=== PATIENT | female | born 1965 | race Caucasian/White ===

== ENCOUNTER → 2017-09-05 | Outpatient (CLI) | payer BC ==
--- NOTE | 2017-09-05 15:38 | XR ---
EXAMINATION TYPE: XR foot complete LT DATE OF EXAM: 09/05/2017 COMPARISON: NONE HISTORY: Pain TECHNIQUE: Three views are submitted. FINDINGS: The osseous structures are intact. There is no acute fracture or dislocation. Arthropathy first MTP joint. IMPRESSION: 1. No acute fracture or dislocation. If symptoms persist, follow-up exam in 7 to 10 days could be ob tained. 2. Arthropathy of the first MTP joint with hypertrophic spur correlate for bunion. 3. Calcaneal spurs. 4. there is sclerosis at the base of the proximal phalanx of the fifth digits. Occasionally BE seen w ith a stress fracture. Correlate with tenderness. If positive for point tenderness recommend MRI or b one scan.
== END | disposition home or self-care (01) ==
LOC: RADXRYALE 15:08
PROVIDERS: ATTEND Physician Assistant Medical
DX: M77.32 Calcaneal spur, left foot (principal); M25.872 Other specified joint disorders, left ankle and foot; M12.872 Other specific arthropathies, not elsewhere classified, left ankle and foot

== ENCOUNTER → 2018-02-23 | Outpatient (CLI) | payer BC ==
--- NOTE | 2018-02-23 13:56 | EST ---
EXERCISE STRESS AGE: 52 SEX: F HT: 5'5" WT: 160 PROTOCOL: Jose Stress Test STAGE: II DURATION OF EXERCISE: 6:13 HEART RATE REST: 60 BLOOD PRESSURE REST: 176/79 MAXIMUM HEART RATE ACHIEVED: 150 MAXIMUM BLOOD PRESSURE: 205/85 85% MPHR: 142 100% MPHR: 167 METS: 7.5 INDICATIONS: Chest pain, heart murmur. CLINICAL INFORMATION: Baseline EKG revealed normal sinus rhythm without significant ST-T changes. Patient walked for 6 minutes 13 seconds, achieved a maximal heart rate of 150 beats per minute, developed fatigue and shortness of breath but did not have any angina or arrhythmia. EKG did not reveal any ST-segment changes to indicate ischemia. By EKG criteria this is a negative stress test with limited exercise capacity. SONY / KAMININ: [id number] /
== END | disposition home or self-care (01) ==
LOC: RADNMMAIN 10:53
PROVIDERS: ATTEND Family Medicine
DX: R53.83 Other fatigue (principal); R06.02 Shortness of breath; I10 Essential (primary) hypertension
CPT/HCPCS: 93017

== ENCOUNTER → 2018-03-11 | Outpatient (CLI) | payer BC ==
--- NOTE | 2018-03-11 13:06 | XR ---
Left foot HISTORY: Osteomyelitis 3 views of the left foot correlated to prior left foot 09/05/2017 There is no significant interval change. No periosteal reaction to suggest osteomyelitis isn't eviden t. Bone mineralization, joint spaces and alignment are stable. There is a plantar calcaneal spur. IMPRESSION: Stable exam.
== END | disposition home or self-care (01) ==
LOC: RADXRMAIN 12:17
PROVIDERS: ATTEND Podiatrist Foot Surgery
DX: M86.272 Subacute osteomyelitis, left ankle and foot (principal)

== ENCOUNTER → 2018-04-21 | Outpatient (CLI) | payer BC ==
--- NOTE | 2018-04-22 14:09 | MM ---
Reason for exam: screening (asymptomatic). Last mammogram was performed 1 year and 10 months ago. History: Patient had first child at age 30. Physical Findings: A clinical breast exam by your physician is recommended on an annual basis and results should be correlated with mammographic findings. MG 3D Screening Mammo W/Cad Bilateral CC and MLO view(s) were taken. Prior study comparison: June 21, 2016, bilateral MG 3d screening mammo w/cad. March 27, 2015, bilateral MG screening mammo w CAD. There are scattered fibroglandular densities. No significant changes when compared with prior studies. ASSESSMENT: Benign, BI-RAD 2 RECOMMENDATION: Routine screening mammogram of both breasts in 1 year.
== END | disposition home or self-care (01) ==
LOC: RADMAMWWP 17:15
PROVIDERS: ATTEND Family Medicine
DX: Z12.31 Encounter for screening mammogram for malignant neoplasm of breast (principal)
CPT/HCPCS: 77063; 77067

== ENCOUNTER → 2018-10-07 | Outpatient (CLI) | payer BC ==
--- NOTE | 2018-10-08 07:25 | US ---
EXAMINATION TYPE: US carotid duplex BILAT DATE OF EXAM: 10/07/2018 COMPARISON: US 2014 CLINICAL HISTORY: I10 Hypertension, hyperlipidemia E78.2. EXAM MEASUREMENTS: RIGHT: Peak Systolic Velocity (PSV) cm/sec ----- Right CCA: 82.0 ----- Right ICA: 144.7 ----- Right ECA: 133.3 ICA/CCA ratio: 1.8 RIGHT: End Diastole cm/sec ----- Right CCA: 22.6 ----- Right ICA: 51.0 ----- Right ECA: 21.7 LEFT: Peak Systolic Velocity (PSV) cm/sec ----- Left CCA: 81.0 ----- Left ICA: 120.2 ----- Left ECA: 93.2 ICA/CCA ratio: 1.5 LEFT: End Diastole cm/sec ----- Left CCA: 26.7 ----- Left ICA: 58.5 ----- Left ECA: 10.8 VERTEBRALS (direction of flow): Right Vertebral: Antegrade Left Vertebral: Antegrade Rhythm: Normal Thyroid: right: 1.8 x 1.0 x 1.1cm nodule, left: 2.0 x 1.7 x 1.6cm nodule, 1.2 x 1.0 x 1.2cm nodule. IMPRESSION: Bilateral intimal thickening, minimal plaque bilateral bulb, elevated velocities: right distal ICA and right proximal ECA, no significant stenosis. Criteria for Assigning % of Stenosis / Diameter reduction (Estimation based on the indirect measurements of the internal carotid artery velocities (ICA PSV). 1. Normal (no stenosis)=ICA PSV < 125 cm/s: ratio < 2.0: ICA EDV<40 cm/s. 2. Less than 50% stenosis=ICA PSV < 125 cm/s: ratio < 2.0: ICA EDV<40 cm/s. 3. 50 to 69% stenosis=ICA PSV of 125 to 230 cm/s: ration 2.0 ? 4.0: ICA EDV 40-100 cm/s. 4. Greater than 70% stenosis to near occlusion= ICA PSV > 230 cm/s: ratio > 4.0: ICA EDV > 100 cm/s. 5. Near occlusion= ICA PSV velocities may be low or undetectable: variable ratio and ICA EDV. 6. Total occlusion=unable to detect flow.
== END ==
LOC: RADUSWWP 15:25
PROVIDERS: ATTEND Family Medicine
DX: I70.90 Unspecified atherosclerosis (principal)
CPT/HCPCS: 93880

== ENCOUNTER → 2019-06-11 | Outpatient (CLI) | payer SELFPAY ==
--- NOTE | 2019-06-16 13:49 | P.ARTDOP ---
Arterial Doppler LOWER EXTREMITY ARTERIAL DOPPLER: DATE OF SERVICE: 06/11/2019 Reason for study: Not given. Doppler waveforms: Multiphasic bilaterally throughout. Pulse volume recording: []. Pressure gradients: None. Ankle-brachial indices: Greater than 1 bilaterally. Toe pressures: [] on the right, [] on the left Impression: Normal study.
== END | disposition home or self-care (01) ==
LOC: RADUSWWP 14:02
PROVIDERS: ATTEND Family Medicine
DX: M79.672 Pain in left foot (principal); E11.65 Type 2 diabetes mellitus with hyperglycemia; E78.2 Mixed hyperlipidemia; I10 Essential (primary) hypertension
CPT/HCPCS: 93922

== ENCOUNTER → 2020-08-17 | Outpatient (CLI) | payer BC ==
--- NOTE | 2020-08-18 10:40 | MM ---
Reason for exam: screening (asymptomatic). Last mammogram was performed 2 years and 4 months ago. History: Patient had first child at age 30. Physical Findings: A clinical breast exam by your physician is recommended on an annual basis and results should be correlated with mammographic findings. MG 3D Screening Mammo W/Cad Bilateral CC and MLO view(s) were taken. Prior study comparison: April 21, 2018, bilateral MG 3d screening mammo w/cad. June 21, 2016, bilateral MG 3d screening mammo w/cad. There are scattered fibroglandular densities. There is no discrete abnormality. No significant changes when compared with prior studies. ASSESSMENT: Negative, BI-RAD 1 RECOMMENDATION: Routine screening mammogram of both breasts in 1 year.
== END | disposition home or self-care (01) ==
LOC: RADMAMWWP 14:54
PROVIDERS: ATTEND Family Medicine
DX: Z12.31 Encounter for screening mammogram for malignant neoplasm of breast (principal)
CPT/HCPCS: 77063; 77067

== ENCOUNTER → 2021-02-01 | Outpatient (CLI) | payer BC ==
--- NOTE | 2021-02-01 11:55 | CT ---
EXAMINATION TYPE: CT heart w calcium score DATE OF EXAM: 02/01/2021 COMPARISON: None. HISTORY: Screening for cardiovascular disorder. 213.9 CT DLP: 59.30 mGycm Automated exposure control for dose reduction was used. CT CALCIUM SCORING Coronary calcium is a marker for plaque (fatty deposits) in a blood vessel or atherosclerosis (harden ing of the arteries). The presence and amount of calcium detected in a coronary artery by the CT sca n, indicates the presence and amount of atherosclerotic plaque. These calcium deposits appear years before the development of heart disease symptoms such as chest pain and shortness of breath. A calcium score is computed for each of the coronary arteries based upon the volume and density of th e calcium deposits. This can be referred to as your calcified plaque burden. It does not correspond directly to the percentage of narrowing in the artery but does correlate with the severity of the un derlying coronary atherosclerosis. PROCEDURE TECHNIQUE - Prospective Gating was used. Slice thickness: 3mm. Density threshold (HU): 130, Pixel threshold: 3, Algorithm: discrete. RESULTS Region: LM Calcium Score ([place]at[place]): .55 Volume (mm3): 1.66 Mass (g): .55 Region: RCA Calcium Score ([place]): 17.2 Volume (mm3): 27.18 Mass (g): 9.06 Region: LAD Calcium Score ([place]at[place]): 5.55 Volume (mm3): 8.32 Mass (g): 2.77 Region: CX Calcium Score (Agatston): 41.42 Volume (mm3): 39.38 Mass (g): 13.13 Region: PDA Calcium Score ([place]at[place]): 0 Volume (mm3): 0 Mass (g): 0 Total: Calcium Score (Agatston): 64.72 Volume (mm3): 76.55 Mass (g): 25.52 TOTAL CALCIUM SCORE: 64.72 Incidental small hiatal hernia suspected. Incidental visualized liver isodense to spleen consistent w ith mild diffuse fatty infiltration. IMPRESSION: Calcium Score: 11-100 Implication: Definite, at least mild atherosclerotic plaque Risk of Coronary Artery Disease: Mild or minimal coronary narrowings likely. CALCIUM SCORE IMPLICATION RISK OF C ORONARY ARTERY DISEASE 0 No identifiable plaque Very low, generally less than 5% 1-10 Minimal identifiable plaque Very unlikely, less than 10% 11-100 Definite, at least mild atherosclerotic plaque Mild or m inimal coronary narrowings likely 101-400 Definite, at least moderate atherosclerotic plaque Mild coronary ar pb disease highly likely, significant narrowing possible 401 or Higher Extensive atherosclerotic plaque High lik elihood of at least one significant coronary narrowing
== END | disposition home or self-care (01) ==
LOC: RADCTMAIN 09:09
PROVIDERS: ATTEND Family Medicine
DX: Z13.6 Encounter for screening for cardiovascular disorders (principal); I25.10 Atherosclerotic heart disease of native coronary artery without angina pectoris
CPT/HCPCS: 75571

== ENCOUNTER 2021-02-20 17:20 | Inpatient (IN) | payer BC ==
--- NOTE | 2021-02-20 18:09 | ED ---
Chest Pain HPI - General Chief Complaint: Chest Pain Stated Complaint: chest pain, SOB Time Seen by Provider: 02/20/21 17:37 Source: EMS Mode of arrival: EMS Limitations: no limitations - History of Present Illness Initial Comments: This 55-year-old female presents as a transfer from [facility] emergency department. She relates that she had some chest pain this past evening and then it reoccurred today at approximately 1 PM. She describes it as a pressure that was radiating into her back and her left arm. She had some shortness of breath and broke out in a sweat. She was seen in their emergency department and initial EKG did not show any ST elevation. She relates that while in the emergency department her symptoms progressed and worsened and they repeated the EKG and this showed some ST elevation. She denies any previous cardiac disease. She does relate that she has a significant family history of cardiac disease. There is no leg pain or swelling or history of DVT or PE. She has never had a heart catheterization in the past. Transfer was accepted from the other emergency Department in case was discussed with our can stacker, Dr. vargas, prior to arrival. He recommended that patient receives some TNKase. Report is received from EMS and they relate that the transfer was uneventful. Patient is reporting significant alleviation of her chest pain. She also is currently on a heparin drip, received aspirin, and is on Nitropaste. No other complaints or modifying factors. - Related Data Home Medications Medication Instructions Recorded Confirmed lisinopriL [Zestril] 10 mg PO DAILY 11/18/14 02/20/21 Albuterol Inhaler [Ventolin Hfa 2 puff INHALATION RT-QID PRN 02/20/21 02/20/21 Inhaler] Atorvastatin Calcium [Lipitor] 80 mg PO DAILY 02/20/21 02/20/21 Semaglutide [Ozempic] 0.5 mg SQ FR 02/20/21 02/20/21 glipiZIDE [Glucotrol] 10 mg PO AC-BID 02/20/21 02/20/21 metFORMIN HCL 1,000 mg PO BID 02/20/21 02/20/21 Allergies Allergy/AdvReac Type Severity Reaction Status Date / Time No Known Allergies Allergy Verified 02/20/21 18:29 Review of Systems ROS Statement: Those systems with pertinent positive or pertinent negative responses have been documented in the HPI. ROS Other: All systems not noted in ROS Statement are negative. Past Medical History Past Medical History: Diabetes Mellitus, Hyperlipidemia, Hypertension Additional Past Medical History / Comment(s): lt. foot wound History of Any Multi-Drug Resistant Organisms: None Reported Past Surgical History: Section Past Anesthesia/Blood Transfusion Reactions: No Reported Reaction Past Psychological History: No Psychological Hx Reported Smoking Status: Never smoker Past Alcohol Use History: None Reported Past Drug Use History: None Reported - Past Family History Mother Family Medical History: Cancer General Exam - General Exam Comments Initial Comments: GENERAL: The patient is well nourished and well hydrated. VITAL SIGNS: Heart rate, blood pressure, respiratory rate reviewed as recorded in nurse's notes. EYES: Pupils are round and reactive. Extraocular movements are intact. No conjunctival / lid redness or swelling. ENT: No external evidence of injury, swelling, or ecchymosis. Airway is patent. Throat is clear. NECK: Nontender. No swelling or evidence of injury. No subcutaneous emphysema. Trachea is midline. No thyroid mass. HEART: Regular rate and rhythm. Good peripheral pulses. LUNGS/CHEST: Breath sounds clear and equal bilaterally. No rales, rhonchi, or wheezes. No ecchymosis, subcutaneous emphysema, or tenderness. ABDOMEN: Abdomen soft without tenderness. No palpable masses or organomegaly. No peritoneal signs. No abdominal wall swelling or ecchymosis. EXTREMITIES: No extremity tenderness. Normal muscle tone and function. No thoracolumbar tenderness. NEUROLOGIC: Sensation is grossly intact. Cranial nerve exam reveals face is symmetrical, tongue is midline, speech is clear. SKIN: No abrasions or ecchymosis is noted. No induration or masses noted. PSYCHIATRIC: Alert and oriented. Appropriate behavior and judgment. Limitations: no limitations Course Vital Signs 02/20/21 02/20/21 17:32 18:35 Temperature 98.1 F Pulse Rate 89 80 Respiratory 17 17 Rate Blood Pressure 139/86 139/86 O2 Sat by Pulse 98 97 Oximetry Chest Pain MDM - MDM The patient was seen and examined. All diagnostics were reviewed. Transfer records from previous hospital were reviewed and this did show initially an EKG which appeared to be normal. The repeat EKG shows ST elevation in V1 through V4. Upon arrival, she has another EKG at our facility which still shows some ST elevation in leads V1 through V2. There is some T-wave inversions in 1 and aVL. There is a normal sinus rhythm at a rate of 79. The ID intervals 152, QRS duration is 94, and the QTC intervals 495. The heparin and nitro paste are continued. The troponin is ordered and will be reviewed. The case is discussed with Dr. Benton who is agreeable with admission with cardiology to consult. The laboratories reviewed from her transfer and this does show slight elevation of the d-dimer at 0.99. It also shows slight elevation of the white blood cell count at 12.1. The AST and ALTs slightly elevated. Glucose is elevated at 246 consistent with her history of diabetes. Potassium is slightly elevated at 5.1. Troponin is slightly elevated at 0.15. The chest x-ray from transferring facility is normal. Case is discussed with Dr. Solo from cardiology and EKGs are reviewed by him. He would like to take the patient to the [facility] emergently. The patient is agreeable with this plan. She is currently chest pain free. She will be admitted to internal medicine with cardiology to consult but will have heart catheterization first. Approximately 30 minutes of critical care time is utilized and the treatment of the patient. Disposition Clinical Impression: ST elevation myocardial infarction (STEMI), Chest pain, Hyperglycemia, Diabetes mellitus, Transaminitis Disposition: ADMITTED IP TO THIS HOSP Condition: Fair Is patient prescribed a controlled substance at d/c from ED?: No Referrals: Frankie Mccormick DO [Primary Care Provider] - 1-2 days Time of Disposition: 18:09 Decision Date: 02/20/21 Decision Time: 18:09
[2021-02-20] MEDS ORDERED: NITROGLYCERIN SL TABS 0.4 MG TAB SUBLINGUAL PRN ×2 (18:10→20:30)
[2021-02-20 18:22] LABS: Partial Thromboplastin Time 60.9 sec (22.0-30.0); Prothrombin Time 10.6 sec (9.0-12.0)
[2021-02-20] MEDS: HEPARIN SOD,PORK IN 0.45% NACL 25,000 UNIT in 0.45% NACL 1 250ML.BAG IV SCH (18:32)
[2021-02-20] MEDS ORDERED: ALBUTEROL NEBULIZED 2.5 MG/3 ML INHALATION PRN (18:35)
[2021-02-20] MEDS ORDERED: LIDOCAINE 1% INJ 10MG/ML (20 ML MDV) ONE (19:01)
[2021-02-20] MEDS ORDERED: fentaNYL (PF) 50 MCG/ML 2 ML AMP ONE (19:01)
[2021-02-20] MEDS ORDERED: VERAPAMIL 2.5 MG/ML 2 ML AMP ONE (19:01)
[2021-02-20] MEDS ORDERED: HEPARIN SODIUM 1,000 UN/ML (10ML VL) ONE (19:01)
--- NOTE | 2021-02-20 19:09 | P.CRDCN ---
History of Present Illness History of present illness: HISTORY OF PRESENTING ILLNESS This is a pleasant 55-year-old with past medical history significant for hypertension, hyperlipidemia, diabetes mellitus type 2, asthma who presents as a transfer from [facility] for anterior STEMI. Patient admits that over the last day she has been having chest pain. This has been off and on and got worse associated with some diaphoresis and nausea. She therefore presented to the emergency department and [place]. Initial EKG showed hyperacute T waves, ST elevations V2 through V4 with repeat EKG 40 minutes later with some Q waves with ST elevations. Therefore patient was given IV tenecteplase, aspirin and heparin drip and was transferred to [facility]. On presentation EKG shows sinus rhythm, left axis deviation, Q waves V1 through V3 with continued ST elevation mainly in V2 up to a box and a half and biphasic T waves. Patient states her pain went away with pain medications and currently denies any real pain. Denies shortness breath. She does not smoke, no alcohol, no illicit drugs. Initial blood work with troponin 0.86, PT 10.6, INR 1.0, PTT 60.9. She states she was taking a new weight loss medication over the last 2 days some sort of keto diet pill. REVIEW OF SYSTEMS At the time of my exam: CONSTITUTIONAL: Denies fever or chills. CARDIOVASCULAR: Denies chest pain, shortness of breath, orthopnea, PND or palpitations. RESPIRATORY: Denies cough. GASTROINTESTINAL: Denies abdominal pain, diarrhea, constipation, nausea or vomiting. MUSCULOSKELETAL: Denies myalgias. NEUROLOGIC: Denies numbness, tingling or weakness. ENDOCRINE: Denies fatigue, weight change, polydipsia or polyurina. GENITOURINARY: Denies burning, hematuria or urgency with micturation. HEMATOLOGIC: Denies history of anemia or bleeding. PHYSICAL EXAMINATION Vital signs reviewed. CONSTITUTIONAL: No apparent distress. HEENT: Head is normocephalic. Pupils are equal, round. Sclerae anicteric. Mucous membranes of the mouth are moist. No JVD. No carotid bruit. CHEST EXAMINATION: Lungs are clear to auscultation. No chest wall tenderness is noted on palpation or with deep breathing. HEART EXAMINATION: Regular rate and rhythm. S1, S2 heard. No murmurs, gallops or rub. ABDOMEN: Soft, nontender. Positive bowel sounds. EXTREMITIES: 2+ peripheral pulses, no lower extremity edema and no calf tenderness. NEUROLOGIC EXAMINATION: Patient is awake, alert and oriented x3. ASSESSMENT 1. Anterior STEMI status post TNK, still some ST elevation in V2 however patient currently chest pain free 2. Hypertension 3. Hyperlipidemia 4. Diabetes mellitus type 2 for 20 years 5. Asthma PLAN Patient still with some ST elevation in V2 however currently chest pain-free. EKG shows some Q waves. We will take patient for heart catheterization and possible PCI. Unclear if there is any association with by mouth diet pills she has been taking last 2 days. Denies any stimulants, cocaine. Check 2-D echo. Further recommendations follow. Past Medical History Past Medical History: Diabetes Mellitus, Hyperlipidemia, Hypertension Additional Past Medical History / Comment(s): lt. foot wound History of Any Multi-Drug Resistant Organisms: None Reported Past Surgical History: Section Past Anesthesia/Blood Transfusion Reactions: No Reported Reaction Past Psychological History: No Psychological Hx Reported Smoking Status: Never smoker Past Alcohol Use History: None Reported Past Drug Use History: None Reported - Past Family History Mother Family Medical History: Cancer Medications and Allergies Home Medications Medication Instructions Recorded Confirmed Type lisinopriL [Zestril] 10 mg PO DAILY 11/18/14 02/20/21 History Albuterol Inhaler [Ventolin Hfa 2 puff INHALATION RT-QID PRN 02/20/21 02/20/21 History Inhaler] Atorvastatin Calcium [Lipitor] 80 mg PO DAILY 02/20/21 02/20/21 History Semaglutide [Ozempic] 0.5 mg SQ FR 02/20/21 02/20/21 History glipiZIDE [Glucotrol] 10 mg PO AC-BID 02/20/21 02/20/21 History metFORMIN HCL 1,000 mg PO BID 02/20/21 02/20/21 History Allergies Allergy/AdvReac Type Severity Reaction Status Date / Time No Known Allergies Allergy Verified 02/20/21 18:29 Physical Exam Vitals: Vital Signs Temp Pulse Resp BP Pulse Ox 02/20/21 18:35 80 17 139/86 97 02/20/21 17:32 98.1 F 89 17 139/86 98 Intake and Output 02/20/21 02/20/21 02/20/21 06:59 14:59 22:59 Other: Weight 74.843 kg Results Cardiac Enzymes 02/20/21 Range/Units 17:59 Troponin I 0.861 H* (0.000-0.034) ng/mL Coagulation 02/20/21 Range/Units 17:59 PT 10.6 (9.0-12.0) sec APTT 60.9 H (22.0-30.0) sec Current Medications Generic Name Dose Route Start Last Admin Trade Name Freq PRN Reason Stop Dose Admin Albuterol Sulfate 2.5 mg 02/20/21 18:35 Albuterol Nebulized 2.5 Mg/3 Ml INHALATION RT-QID PRN Shortness Of Breath Aspirin 325 mg 02/21/21 09:00 Aspirin 325 Mg Tab PO DAILY [facility] Atorvastatin Calcium 80 mg 02/21/21 09:00 Atorvastatin 80 Mg Tab PO DAILY [facility] Glipizide 10 mg 02/21/21 07:30 Glipizide 10 Mg Tab PO AC-BID [facility] Heparin Sodium/Sodium Chloride 250 mls @ 8.981 mls/hr 02/20/21 17:45 02/20/21 18:32 25,000 unit/ Sodium Chloride IV 12 units/kg/hr .Q24H [facility] 8.981 mls/hr Administration Protocol 12 UNITS/KG/HR Lisinopril 10 mg 02/21/21 09:00 Lisinopril 10 Mg Tab PO DAILY [facility] Metformin HCl 1,000 mg 02/21/21 07:30 Metformin 500 Mg Tab PO BID-W/MEALS [facility] Metoprolol Tartrate 25 mg 02/20/21 21:00 02/20/21 18:53 Metoprolol Tartrate 25 Mg Tab PO 25 mg BID [facility] Administration Nitroglycerin 0.4 mg 02/20/21 18:10 Nitroglycerin Sl Tabs 0.4 Mg Tab SUBLINGUAL Q5M PRN Chest Pain Nitroglycerin 1 inch 02/21/21 00:00 Nitroglycerin Oint 1 Inch/Gm Packet TOPICAL Q6HR [facility] Semaglutide [Ozempic 0.5 mg 02/23/21 09:00 ] SQ FR [facility] Intake and Output 02/20/21 02/20/21 02/20/21 06:59 14:59 22:59 Other: Weight 74.843 kg Patient Weight 02/21/21 06:59 Weight 74.843 kg
[2021-02-20] MEDS ORDERED: fentaNYL (PF) 50 MCG/ML 2 ML AMP IV ONE (19:20)
[2021-02-20] MEDS: MIDAZOLAM 2 MG/2 ML VIAL IV ONE ×2 (19:20→19:38)
[2021-02-20] MEDS ORDERED: SODIUM CHLORIDE 0.9% 1,000 ML IV ONE (19:22)
[2021-02-20] MEDS: LIDOCAINE 1% INJ 10MG/ML (20 ML MDV) SQ ONE ×2 (19:24→19:43)
[2021-02-20] MEDS ORDERED: VERAPAMIL SYRINGE (5 MG/10 ML) INTRAARTER ONE (19:26)
[2021-02-20] MEDS: NITROGLYCERIN 1000MCG/10ML SYRINGE INTRAARTER ONE ×4 (19:29→20:09)
[2021-02-20] MEDS: HEPARIN SODIUM 1,000 UN/ML (10ML VL) IV ONE ×2 (19:46→20:02)
[2021-02-20] MEDS ORDERED: TICAGRELOR 90 MG TAB ONE (19:56)
[2021-02-20] MEDS ORDERED: TICAGRELOR 90 MG TAB PO ONE (19:59)
[2021-02-20] MEDS ORDERED: IOPAMIDOL-370 125ML BTL INJ ONE (20:09)
[2021-02-20] MEDS ORDERED: IOPAMIDOL-370 100ML BTL INJ ONE ×2 (20:16)
[2021-02-20] MEDS ORDERED: ZOLPIDEM 5 MG TAB PO PRN (20:30)
[2021-02-20] MEDS ORDERED: MAG HYDROX/AL HYDROX/SIMETH 30 ML CUP PO PRN (20:30)
[2021-02-20] MEDS ORDERED: RX INFO: IV CONTRAST WAS GIVEN 1 EACH MISC MISCELLANE PRN (20:30)
[2021-02-20] MEDS ORDERED: SODIUM CHLORIDE 0.9% 1,000 ML IV SCH (20:30)
[2021-02-20] MEDS ORDERED: ATROPINE SULFATE 0.1 MG/ML 10ML SYRINGE IV PRN (20:30)
--- NOTE | 2021-02-20 20:30 | P.CARDCATH ---
Description of Procedure: PROCEDURES PERFORMED: Left heart catheterization, bilateral coronary angiography, PCI mid LAD with a 3.5 x 15 mm Xience KIT INDICATION: STEMI, facilitated PCI HISTORY: Patient is a 55-year-old female with history of diabetes, hypertension, hyperlipidemia, asthma who presented to [facility] with chest pain. Patient was found to have anterior ST elevation and therefore given tenecteplase and transferred for facilitated PCI. Patient was found to have mild residual ST elevation in V2 however chest pain had predominantly improved. CONSENT:I have discussed the risks, benefits and alternative therapies for the above-mentioned procedure and for both sedation/analgesia as well as necessary blood product administration, if indicated, as they pertain to this patient. The patient has indicated understanding and acceptance of the risks and procedures discussed. PROCEDURE: After the risks, benefits and alternatives of the above mentioned procedure explained in detail with the patient, informed consent was obtained. Patient was taken to the catheterization lab and prepped and draped in usual fashion. 1% lidocaine was used to anesthetize the right radial artery. A 6- Ivorian sheath was placed in the right radial artery using modified Seldinger technique. There was a radial loop noted near the elbow which was easily engaged with a 0.035 glide wire however was unable to pass any catheter with extreme pain with straightening out the loop. Therefore radial approach was abandoned. Next a 6-Ivorian sheath was placed in the right femoral artery using modified Seldinger technique, microfracture technique ultrasound guidance. Left coronary angiography was performed with a 6-Ivorian JL 4.0 catheter and right coronary angiography was performed with a 5-Ivorian JR5 catheter in various views. The decision was made to undergo PCI of the mid LAD. Heparin was given for ACT greater than 250. The left main was engaged with a CLS 4.0 guide catheter. A 0.014 BMW wire was advanced into the distal LAD. Pre-balloon dilation was performed with a 2.5 x 12 mm balloon. PCI of the mid LAD was performed with a 3.5 x 15 mm Xience KIT. Preintervention there is 90% stenosis with NANCI 2-3 flow. Postintervention there was 0% residual stenosis with NANCI 3 flow and no dissection. There was residual OM disease however felt due to diabetes and contrast load felt best delayed for staged PCI. A right femoral angiogram was performed which showed adequate anatomy for Angio- Seal closure. A 6-Ivorian Angio-Seal was placed with hemostasis achieved. The right radial sheath was removed and a TR band was placed with hemostasis achieved. The patient tolerated the procedure well. Patient was transported back to the post catheterization holding area in stable condition. Conscious Sedation: Patient was monitored under the direct supervision of vision of myself for conscious sedation using Versed and fentanyl for a total duration of 54 minutes HEMODYNAMICS: Aortic: 144/98 SELECTIVE CORONARY ARTERIOGRAPHY: LEFT MAIN: The left main is a large caliber vessel which bifurcates into the LAD and circumflex. There is no significant stenosis. LEFT ANTERIOR DESCENDING CORONARY ARTERY: LAD is a large caliber vessel which wraps around to the apex. There are mild luminal irregularities and then a 90% stenosis of the mid LAD after diagonal 2 branch.. LEFT CIRCUMFLEX CORONARY ARTERY: Left circumflex is a moderate caliber vessel without significant stenosis. OM1 is a moderate caliber vessel with a proximal 90% stenosis and a mid 70% stenosis. RIGHT CORONARY ARTERY: The right coronary artery is a large caliber vessel which gives off a PDA and PLV branch and is the dominant vessel. There are mild luminal irregularities. FINAL IMPRESSION: 1. Coronary artery disease as described above including 90% mid LAD and 90% OM1. 2. Anterior STEMI status post tenecteplase with mild residual ST elevation in V2 3. Status post PCI mid LAD with 3.5 x 15 mm Xience KIT PLAN: 1. Aggressive risk factor modification per most recent ACC/AHA guidelines. 2. Continue dual antiplatelets for 12 months. 3. Consider staged PCI of OM1.
[2021-02-20] MEDS ORDERED: Magnesium Replacement Protocol 1 EACH MISC MISCELLANE PRN (20:43)
[2021-02-20] MEDS ORDERED: ALPRAZolam 0.25 MG TAB PO PRN (20:43)
[2021-02-20] MEDS ORDERED: HYDROcodone/APAP 5-325MG 1 EACH TAB PO PRN (20:43)
[2021-02-20] MEDS ORDERED: TEMAZEPAM 15 MG CAP PO PRN (20:43)
[2021-02-20] MEDS ORDERED: Potassium Replacement Protocol 1 EACH MISC MISCELLANE PRN (20:43)
[2021-02-20] MEDS ORDERED: ACETAMINOPHEN TAB 500 MG TAB PO PRN (20:43)
[2021-02-20 20:50] LABS: Glucose,Whole Blood 114 mg/dL (75-99)
[2021-02-20] MEDS: INSULIN ASPART (NovoLOG) 100 UNIT/ML VIAL SQ SCH (20:55)
[2021-02-20] MEDS ORDERED: METOPROLOL TARTRATE 25 MG TAB PO SCH (21:00)
[2021-02-20] MEDS ORDERED: FUROSEMIDE 10 MG/ML 10 ML VIAL IV STA (22:27)
--- NOTE | 2021-02-20 22:46 | XR ---
EXAMINATION TYPE: XR chest 1V portable DATE OF EXAM: 02/20/2021 COMPARISON: NONE HISTORY: Short of breath TECHNIQUE: Single view FINDINGS: There is moderate pulmonary interstitial and airspace edema. Heart is not grossly enlarged. There are no hilar masses. There is no pleural effusion. There are chest leads. IMPRESSION: There is pulmonary airspace edema.
[2021-02-20] MEDS: NITROGLYCERIN OINT 1 INCH/GM PACKET TOPICAL SCH (22:59)
--- NOTE | 2021-02-20 23:24 | HP ---
HISTORY AND PHYSICAL DATE OF SERVICE: 02/20/2021 CHIEF COMPLAINT: Chest pain. HISTORY OF PRESENT ILLNESS: This 55-year-old woman with a past history of diabetes, hypertension, hyperlipidemia, left foot wound, being followed by Dr. Mccormick in the outpatient setting is complaining of severe anterior chest pain ( ) in character. Patient went to [facility], ST-elevation was noted in V1 to V4. The patient was given DIPESH infusion. The patient was transferred to [facility]. Dr. Solo performed left heart catheterization and LAD was occluded 90% and 90% OM1. The patient underwent PCI of the mid LAD Xience drug-eluting stent and the patient is being monitored closely. There is no history of fever rigors. No headache, loss of consciousness, seizures. The ST elevation has resolved to minimum at this time. PAST MEDICAL HISTORY: History of diabetes type 2, hypertension, hyperlipidemia, history of foot wound. MEDICATIONS: Home medications are metformin, Ozempic, Glucotrol. Lipitor, Ventolin, Zestril. ALLERGIES: None. FAMILY HISTORY: History of cancer in the family. SOCIAL HISTORY: No history of smoking. No history of alcohol intake. REVIEW OF SYSTEMS: ENT No history of diminished hearing or vision. CARDIOVASCULAR As mentioned earlier. RESPIRATORY No cough, no hemoptysis. GI No nausea, vomiting, or diarrhea. No dysuria or hematuria. NERVOUS No numbness or weakness. ALLERGY/IMMUNOLOGY No asthma or hayfever. MUSCULOSKELETAL As mentioned earlier. HEMATOLOGY/ONCOLOGY Negative. ENDOCRINE As mentioned earlier. CONSTITUTIONAL As mentioned earlier. DERMATOLOGY Negative. RHEUMATOLOGY Negative, PSYCHIATRY As mentioned earlier. PHYSICAL EXAMINATION: Patient is alert, oriented x3. Pulse is 80, blood pressure 113/83, respiration 17, temperature 98.0, pulse ox 97% on room air. HEENT: Conjunctivae normal. Oral mucosa moist. NECK: No jugular venous distention. No lymph node enlargement. CARDIOVASCULAR: S1, S2, muffled. No S3, no S4, RESPIRATORY: Diminished breath sounds at the bases. No rhonchi, no crackles. ABDOMEN: Soft, nontender. LEGS: No edema, no swelling. NERVOUS SYSTEM: Higher functions mentioned earlier. Moves all four limbs. No focal motor or sensory deficits. LYMPHATICS: No lymph node in neck or axilla. SKIN: No rash. JOINTS: No active deforming arthropathy. LABS: Troponin is 0.861. ASSESSMENT: 1. Acute anterior ST-segment elevation myocardial infarction, status post tenecteplase as well as LAD stenting. 2. Troponin 0.861. 3. Diabetes mellitus type 2. 4. Hypertension. 5. Hyperlipidemia. 6. History of ( ) wound. 7. FULL CODE. RECOMMENDATIONS AND DISCUSSION: This 55-year-old woman who presented with multiple medical issues, we will monitor the patient closely, continue the current management, continue symptomatic treatment. Continue with dual antiplatelet treatment. Continue ( ) dose Lipitor, heparin, post PTCA protocol, beta blockers. We will continue with Accu-Cheks before meals and at bedtime and scale. Closely monitor the blood sugars. DVT prophylaxis. Incentive spirometry. Proton pump inhibitors. We will follow the patient closely with Cardiology. Prognosis guarded, but currently stable. Further recommendations to follow. SONY / MARGARETH: [id number] /
--- NOTE | 2021-02-21 02:37 | P.EN ---
A team note Activated at 10:17 PM. Arrived at the scene shortly after. Reviewed the chart and discussed the case the RN. The patient had presented to the emergency room earlier in the day and was diagnosed with STEMI and immediately taken to the cardiac Site Monitor where she underwent stenting of the LAD. Upon arrival on the unit following her procedure, the patient was noted to be hypoxic with SpO2 of 88% on room air. She only improved to 90% with 6 L nasal cannula. Vital signs upon arrival at the scene were BP 169/94, SpO2 90% on 6 L nasal cannula, and pulse 111. The patient reported feeling somewhat short of breath but otherwise denied additional complaints. She denied chest discomfort, nausea, vomiting, diaphoresis, palpitations. Also denied abdominal pain, sore throat, dizziness. The following was her examination upon arrival at the scene. General: Non-toxic, in no acute distress, appears stated age, overweight HEENT: NC/AT, anicteric sclerae, moist conjunctiva, no lid-lag, PERRLA Cardiovascular: S1/S2 wnl, no murmurs, rubs, or gallops Lungs: Diffuse rales and rhonchi bilaterally in all lung gómez, no accessory muscle use Abdominal: Soft, non-tender, non-distended, no guarding, rebound, or rigidity Skin: Warm, dry Extremities: No edema or contractures Psychiatric: Alert and oriented to person, place and time, appropriate affect Assessment/plan Hypoxia, suspected secondary to flash pulmonary edema -Lasix 80 mg IV push ordered -IV fluids held at this time -Primary team and cardiology service notified by the RN -Continue cardiac monitoring -Echocardiogram as per the cardiology service
[2021-02-21 03:01] LABS: Appearance,Urine Clear (Clear); Bilirubin,Urine Negative (Negative); Blood,Urine Moderate (Negative); Color,Urine Colorless; Glucose,Urine (UA) Trace (Negative); Hyaline Casts,Urine 3 /lpf (0-2); Ketones,Urine Negative (Negative); Leukocyte Esterase,Urine Trace (Negative); Mucus,Urine Rare /hpf; Nitrite,Urine Negative (Negative); Protein,Urine Negative (Negative); RBC,Urine 3 /hpf (0-5); Specific Gravity,Urine 1.012 (1.001-1.035); Squamous Epithelial Cell,Urine <1 /hpf (0-4); Urobilinogen,Urine <2.0 mg/dL (<2.0); WBC,Urine 2 /hpf (0-5)
[2021-02-21 06:09] LABS: Glucose,Whole Blood 228 mg/dL (75-99)
[2021-02-21] MEDS: glipiZIDE 10 MG TAB PO SCH ×2 (06:23→18:37)
[2021-02-21] MEDS: INSULIN ASPART (NovoLOG) 100 UNIT/ML VIAL SQ SCH ×4 (06:23→21:06)
[2021-02-21] MEDS: PANTOPRAZOLE 40 MG TABLET PO SCH (06:23)
[2021-02-21] MEDS: NITROGLYCERIN OINT 1 INCH/GM PACKET TOPICAL SCH ×4 (06:23→23:13)
[2021-02-21] MEDS ORDERED: metFORMIN 500 MG TAB PO SCH (07:30)
[2021-02-21] MEDS ORDERED: ASPIRIN 325 MG TAB PO SCH (09:00)
[2021-02-21] MEDS ORDERED: TICAGRELOR 90 MG TAB PO SCH (09:00)
[2021-02-21 09:32] LABS: Basophils # (A) 0.1 k/uL (0-0.2); Basophils % (A) 0 %; Eosinophils # (A) 0.1 k/uL (0-0.7); Eosinophils % (A) 1 %; HCT 45.4 % (34.0-46.0); HGB 14.8 gm/dL (11.4-16.0); Lymphocytes # (A) 1.4 k/uL (1.0-4.8); Lymphocytes % (A) 10 %; MCH 27.8 pg (25.0-35.0); MCHC 32.7 g/dL (31.0-37.0); MCV 85.1 fL (80.0-100.0); Mean Platelet Volume 6.9; Monocytes # (A) 0.6 k/uL (0-1.0); Monocytes % (A) 5 %; Neutrophils # (A) 11.8 k/uL (1.3-7.7); Neutrophils % (A) 84 %; Platelet Count 312 k/uL (150-450); RBC 5.33 m/uL (3.80-5.40); RDW 13.9 % (11.5-15.5); WBC 14.1 k/uL (3.8-10.6)
[2021-02-21] MEDS: ATORVASTATIN 80 MG TAB PO SCH (09:32)
[2021-02-21] MEDS: ASPIRIN 81 MG PO SCH (09:32)
[2021-02-21] MEDS: METOPROLOL TARTRATE 25 MG TAB PO SCH ×2 (09:32→21:06)
[2021-02-21] MEDS: lisinopriL 10 MG TAB PO SCH (09:32)
[2021-02-21] MEDS: FUROSEMIDE 20 MG TAB PO SCH (09:34)
[2021-02-21] MEDS: SODIUM CHLORIDE 0.9% 1,000 ML IV SCH (09:34)
[2021-02-21 09:45] LABS: Calcium 9.5 mg/dL (8.4-10.2); Potassium 4.5 mmol/L (3.5-5.1)
[2021-02-21 11:48] VITALS: BMI 33.7
[2021-02-21 11:55] LABS: Glucose,Whole Blood 223 mg/dL (75-99)
--- NOTE | 2021-02-21 13:11 | ECHOF ---
Referral Reason: MEASUREMENTS -------- HEIGHT: 165.1 cm WEIGHT: 91.6 kg BP: 109/61 IVSd: 1.1 cm (0.6 - 1.1) LVIDd: 4.2 cm (3.9 - 5.3) LVPWd: 1.1 cm (0.6 - 1.1) IVSs: 1.3 cm LVIDs: 3.0 cm LVPWs: 1.5 cm LAESV Index (A-L): 22.05 ml/m Ao Diam: 3.0 cm (2.0 - 3.7) AV Cusp: 1.7 cm (1.5 - 2.6) LA Diam: 3.2 cm (2.7 - 3.8) MV EXCURSION: 18.048 mm (> 18.000) MV EF SLOPE: 51 mm/s (70 - 150) MV E Josue: 0.61 m/s MV DecT: 209 ms MV A Josue: 0.91 m/s MV E/A Ratio: 0.68 RAP: 5.00 mmHg RVSP: 18.36 mmHg FINDINGS -------- Sinus rhythm. This was a techncally difficult study with suboptimal views, , Lumason utilized for enhancement of im ages. The left ventricular size is normal. Overall left ventricular systolic function is moderate-severel y impaired with, an EF between 30 - 35 %. Moderate EDMOND with peak LVOT gradient of 19.20mmHg. Mid i nferoseptal LV wall motion is normal. Mid anteroseptal LV wall motion is normal. Apical anterior LV wall motion is normal. Apical lateral LV wall motion is normal. Apical inferior LV wall motion is normal. Apical septum LV wall motion is normal. The right ventricle is normal in size. Normal LA size by volume 22+/-6 ml/m2. The right atrial size is normal. 5.0mg OF Lumason UTLIZED: 2 OR MORE WALL SEGMENTS NOT VISUALIZED. The aortic valve is trileaflet, and appears structurally normal. No aortic stenosis or regurgitation. Jfrn-nh-uckaeoau mitral regurgitation is present. Mild tricuspid regurgitation present. Right ventricular systolic pressure is normal at < 35 mmHg. There is no pulmonic regurgitation present. There is no pericardial effusion. CONCLUSIONS -------- 1. This was a techncally difficult study with suboptimal views, , Lumason utilized for enhancement of images. 2. The left ventricular size is normal. 3. Overall left ventricular systolic function is moderate-severely impaired with, an EF between 30 - 35 %. 4. Moderate EDMOND with peak LVOT gradient of 19.20mmHg. 5. Mid inferoseptal LV wall motion is normal. 6. Mid anteroseptal LV wall motion is normal. 7. Apical anterior LV wall motion is normal. 8. Apical lateral LV wall motion is normal. 9. Apical inferior LV wall motion is normal. 10. Apical septum LV wall motion is normal. 11. The right ventricle is normal in size. 12. Normal LA size by volume 22+/-6 ml/m2. 13. The right atrial size is normal. 14. 5.0mg OF Lumason UTLIZED: 2 OR MORE WALL SEGMENTS NOT VISUALIZED. 15. The aortic valve is trileaflet, and appears structurally normal. No aortic stenosis or regurgitat ion. 16. Xpvc-om-labsvrix mitral regurgitation is present. 17. Mild tricuspid regurgitation present. 18. There is no pericardial effusion. POKER SUPERVISOR: oCnsuelo San RDCS
--- NOTE | 2021-02-21 13:38 | PN ---
PROGRESS NOTE This is a 55-year-old lady with type 2 diabetes, who came in after receiving thrombolytic therapy for anterior ND at [facility] emergency room. She was seen and evaluated by Dr. Solo who performed stenting of LAD. Postprocedure, she did well but went into heart failure and required Lasix. She feels well this morning. She is asymptomatic. Resting comfortably. Her right radial site is clean and dry. Vital signs stable. There is no JVD. S1-S2 heard normally. Lungs reveal fine bibasilar rales. Abdomen is soft, nontender. Lower extremities reveal palpable pulses. No edema. Central nervous system is grossly within normal limits. IMPRESSION: 1. Status post PCI of mid LAD and thrombolytic therapy for an anterior myocardial infarction. 2. Type 2 diabetes mellitus. 3. Episode of heart failure which seems to have resolved could be related to some volume overload type picture since she was hydrated after she came in. RECOMMENDATIONS: I will obtain echocardiogram. Place her on a small dose of Lasix orally and continue all her other medications including statin and she is already on dual antiplatelet therapy. We will continue beta blockers, atorvastatin and based on clinical course, I will make further recommendations. We will obtain echocardiogram today. Thank you very much for the consult. MMODL / IJN: [id number] /
--- NOTE | 2021-02-21 16:12 | P.PN ---
Subjective 73-year-old a pleasant female was admitted the for ST elevation myocardial infarction and patient underwent cardiac catheterization and stenting of the LAD. Patient will come back for staged intervention for circumflex. Patient is found to have ejection fraction of 30-35% had an episode of pulmonary edema and shortness of breath received Lasix. Patient is presently on oral Lasix patient is clinically doing well. Constitutional: Denied any fatigue denied any fever. Cardio vascular: denied any chest pain, palpitations Gastrointestinal denied any nausea vomiting Pulmonary: Denied any shortness of breath cough Neurologic denied any new focal deficits All inpatient medications were reviewed and appropriate changes in these medications as dictated in the interval history and assessment and plan. Objective - Vital Signs Vital signs: Vital Signs Temp 98.6 F 02/21/21 04:00 Pulse 83 02/21/21 11:00 Resp 18 02/21/21 11:00 BP 107/68 02/21/21 11:00 Pulse Ox 97 02/21/21 11:00 Intake & Output 02/20/21 02/21/21 02/21/21 18:59 06:59 18:59 Intake Total 540 240 Output Total 1600 Balance -1060 240 Weight 74.843 kg 92 kg 92 kg Intake: IV 300 Oral 240 240 Output: Urine 1600 Other: Voiding Method Toilet # Voids 2 - Exam PHYSICAL EXAMINATION: GENERAL: The patient is alert and oriented x3, not in any acute distress. Well developed, well nourished. HEENT: Pupils are round and equally reacting to light. EOMI. No scleral icterus. No conjunctival pallor. Normocephalic, atraumatic. No pharyngeal erythema. No thyromegaly. CARDIOVASCULAR: S1 and S2 present. No murmurs, rubs, or gallops. PULMONARY: Chest is clear to auscultation, no wheezing or crackles. ABDOMEN: Soft, nontender, nondistended, normoactive bowel sounds. No palpable organomegaly. MUSCULOSKELETAL: No joint swelling or deformity. EXTREMITIES: No cyanosis, clubbing, or pedal edema. NEUROLOGICAL: Gross neurological examination did not reveal any focal deficits. SKIN: No rashes. - Labs CBC & Chem 7: 02/21/21 09:06 02/21/21 09:06 Labs: Abnormal Lab Results - Last 24 Hours (Table) 02/20/21 02/20/21 02/20/21 Range/Units 17:59 17:59 20:49 WBC (3.8-10.6) k/uL Neutrophils # (1.3-7.7) k/uL APTT 60.9 H (22.0-30.0) sec Sodium (137-145) mmol/L BUN (7-17) mg/dL Glucose (74-99) mg/dL POC Glucose (mg/dL) 114 H (75-99) mg/dL Troponin I 0.861 H* (0.000-0.034) ng/mL Urine Glucose (UA) (Negative) Urine Blood (Negative) Ur Leukocyte Esterase (Negative) Hyaline Casts (0-2) /lpf Urine Mucus (None) /hpf 02/21/21 02/21/21 02/21/21 Range/Units 02:31 06:08 09:06 WBC 14.1 H (3.8-10.6) k/uL Neutrophils # 11.8 H (1.3-7.7) k/uL APTT (22.0-30.0) sec Sodium (137-145) mmol/L BUN (7-17) mg/dL Glucose (74-99) mg/dL POC Glucose (mg/dL) 228 H (75-99) mg/dL Troponin I (0.000-0.034) ng/mL Urine Glucose (UA) Trace H (Negative) Urine Blood Moderate H (Negative) Ur Leukocyte Esterase Trace H (Negative) Hyaline Casts 3 H (0-2) /lpf Urine Mucus Rare H (None) /hpf 02/21/21 02/21/21 02/21/21 Range/Units 09:06 09:06 11:54 WBC (3.8-10.6) k/uL Neutrophils # (1.3-7.7) k/uL APTT (22.0-30.0) sec Sodium 134 L (137-145) mmol/L BUN 19 H (7-17) mg/dL Glucose 335 H (74-99) mg/dL POC Glucose (mg/dL) 223 H (75-99) mg/dL Troponin I 17.300 H* (0.000-0.034) ng/mL Urine Glucose (UA) (Negative) Urine Blood (Negative) Ur Leukocyte Esterase (Negative) Hyaline Casts (0-2) /lpf Urine Mucus (None) /hpf Assessment and Plan Plan: [address] elevation myocardial infarction: Patient is status post cardiac catheterization and stenting of LAD. Obtuse marginal branch was stenosed as well and patient will come back first staged intervention of this coronary artery. Continue dual antiplatelet therapy, beta ekaterina -Congestive heart failure acute systolic dysfunction with mild acute exacerbation patient is on oral Lasix which will be continued. Patient has ejection fraction of 30-35% -Asthma without any acute exacerbation -Hyperlipidemia next and hypertension and type 2 diabetes mellitus -Hypertension
[2021-02-21 17:04] LABS: Glucose,Whole Blood 218 mg/dL (75-99)
[2021-02-21] MEDS ORDERED: CLOPIDOGREL 75 MG TAB PO ONE ×2 (18:00)
[2021-02-21] MEDS: HEPARIN SOD,PORK IN 0.45% NACL 25,000 UNIT in 0.45% NACL 1 250ML.BAG IV SCH (18:11)
[2021-02-21 20:15] LABS: Glucose,Whole Blood 230 mg/dL (75-99)
[2021-02-22 06:08] LABS: Glucose,Whole Blood 97 mg/dL (75-99)
[2021-02-22] MEDS: INSULIN ASPART (NovoLOG) 100 UNIT/ML VIAL SQ SCH ×4 (06:11→20:37)
[2021-02-22] MEDS: NITROGLYCERIN OINT 1 INCH/GM PACKET TOPICAL SCH ×3 (06:11→18:03)
[2021-02-22] MEDS: PANTOPRAZOLE 40 MG TABLET PO SCH (06:50)
[2021-02-22] MEDS: glipiZIDE 10 MG TAB PO SCH ×2 (06:51→16:34)
[2021-02-22 08:18] LABS: Calcium 9.3 mg/dL (8.4-10.2)
[2021-02-22] MEDS: ASPIRIN 81 MG PO SCH (08:35)
[2021-02-22] MEDS: CLOPIDOGREL 75 MG TAB PO SCH (08:36)
[2021-02-22] MEDS: METOPROLOL TARTRATE 25 MG TAB PO SCH ×2 (08:36→20:50)
[2021-02-22] MEDS: FUROSEMIDE 20 MG TAB PO SCH (08:36)
[2021-02-22] MEDS: ATORVASTATIN 80 MG TAB PO SCH (08:36)
[2021-02-22] MEDS: lisinopriL 10 MG TAB PO SCH (08:36)
[2021-02-22] MEDS ORDERED: CLOPIDOGREL 75 MG TAB PO SCH ×2 (09:00)
--- NOTE | 2021-02-22 09:44 | P.PN ---
Subjective 73-year-old a pleasant female was admitted the for ST elevation myocardial infarction and patient underwent cardiac catheterization and stenting of the LAD. Patient will come back for staged intervention for circumflex. Patient is found to have ejection fraction of 30-35% had an episode of pulmonary edema and shortness of breath received Lasix. Patient is presently on oral Lasix patient is clinically doing well. 02/22/2021 Cardiology is recommending one more day of monitoring and a LifeVest. Patient has ejection fraction of around 30-35% patient is presently euvolemic. Patient denied any shortness of breath or chest pain. Constitutional: Denied any fatigue denied any fever. Cardio vascular: denied any chest pain, palpitations Gastrointestinal denied any nausea vomiting Pulmonary: Denied any shortness of breath cough Neurologic denied any new focal deficits All inpatient medications were reviewed and appropriate changes in these medications as dictated in the interval history and assessment and plan. Objective - Vital Signs Vital signs: Vital Signs Temp 98.1 F 02/22/21 04:00 Pulse 51 L 02/22/21 04:00 Resp 16 02/22/21 04:00 BP 99/61 02/22/21 04:00 Pulse Ox 97 02/22/21 04:00 Intake & Output 02/21/21 02/22/21 02/22/21 18:59 06:59 18:59 Intake Total 960 240 Balance 960 240 Weight 92 kg 73.7 kg Intake: Oral 960 240 Other: Voiding Method Toilet Toilet # Voids 2 1 - Exam PHYSICAL EXAMINATION: GENERAL: The patient is alert and oriented x3, not in any acute distress. Well developed, well nourished. HEENT: Pupils are round and equally reacting to light. EOMI. No scleral icterus. No conjunctival pallor. Normocephalic, atraumatic. No pharyngeal erythema. No thyromegaly. CARDIOVASCULAR: S1 and S2 present. No murmurs, rubs, or gallops. PULMONARY: Chest is clear to auscultation, no wheezing or crackles. ABDOMEN: Soft, nontender, nondistended, normoactive bowel sounds. No palpable organomegaly. MUSCULOSKELETAL: No joint swelling or deformity. EXTREMITIES: No cyanosis, clubbing, or pedal edema. NEUROLOGICAL: Gross neurological examination did not reveal any focal deficits. SKIN: No rashes. - Labs CBC & Chem 7: 02/21/21 09:06 02/22/21 07:18 Labs: Abnormal Lab Results - Last 24 Hours (Table) 02/21/21 02/21/21 02/21/21 Range/Units 09:06 09:06 11:54 Sodium 134 L (137-145) mmol/L BUN 19 H (7-17) mg/dL Glucose 335 H (74-99) mg/dL POC Glucose (mg/dL) 223 H (75-99) mg/dL Troponin I 17.300 H* (0.000-0.034) ng/mL 02/21/21 02/21/21 02/22/21 Range/Units 17:03 20:11 07:18 Sodium (137-145) mmol/L BUN 24 H (7-17) mg/dL Glucose 114 H (74-99) mg/dL POC Glucose (mg/dL) 218 H 230 H (75-99) mg/dL Troponin I (0.000-0.034) ng/mL Assessment and Plan Plan: [address] elevation myocardial infarction: Patient is status post cardiac catheterization and stenting of LAD. Obtuse marginal branch was stenosed as well and patient will come back first staged intervention of this coronary artery. Continue dual antiplatelet therapy, beta ekaterina -Congestive heart failure acute systolic dysfunction with mild acute exacerbation patient is on oral Lasix which will be continued. Patient has ejection fraction of 30-35%. Will need LifeVest -Asthma without any acute exacerbation -Hyperlipidemia hypertension type 2 diabetes mellitus -Hypertension
[2021-02-22 12:01] LABS: Glucose,Whole Blood 219 mg/dL (75-99)
[2021-02-22] MEDS: SODIUM CHLORIDE 0.9% 1,000 ML IV SCH (12:28)
--- NOTE | 2021-02-22 15:28 | P.PN ---
Subjective This is a pleasant 55-year-old with past medical history significant for hypertension, hyperlipidemia, diabetes mellitus type 2, asthma who presents as a transfer from [facility] for anterior STEMI. She does not follow with a card filer here. Over the last day she has been having chest pain. This has been off and on and got worse associated with some diaphoresis and nausea. Initial EKG showed hyperacute T waves, ST elevations V2 through V4 with repeat EKG 40 minutes later with some Q waves with ST elevations. Therefore patient was given IV tenecteplase, aspirin and heparin drip and was transferred to [facility]. On presentation EKG shows sinus rhythm, left axis deviation, Q waves V1 through V3 with continued ST elevation mainly in V2 up to a box and a half and biphasic T waves.She is a non-smoker, denies illicit drug use or alcohol use. Troponin 0.86-->17.3, PT 10.6, INR 1.0, PTT 60.9. She was taking a new weight loss medication over the last 2 days some sort of keto diet pill. Patient is underwent heart catheterization and PCI to the mid LAD with Dr. Solo on 02/19. Cardiac catheterization revealed 90% mid LAD which was stented and 90% OM1 02/22/2021: Patient seen and examined at bedside, no acute distress. She states that she is much better once be discharged home. She denies chest pain, shortness of breath. Echocardiogram revealed an EF of less than 35%, mild to moderate mitral regurgitation, mild tricuspid regurgitation. PHYSICAL EXAMINATION Vital signs reviewed. CONSTITUTIONAL: No apparent distress. HEENT: Neck supple. No JVD. CHEST EXAMINATION: Lungs are clear to auscultation. No chest wall tenderness is noted on palpation or with deep breathing. HEART EXAMINATION: Regular rate and rhythm. S1, S2 heard. Systolic murmur noted ABDOMEN: Soft, nontender. Positive bowel sounds. EXTREMITIES: 2+ peripheral pulses, no lower extremity edema and no calf tenderness. NEUROLOGIC EXAMINATION: Patient is awake, alert and oriented x3. ASSESSMENT Anterior STEMI status post TNK, still some ST elevation in V2 s/p PCI to mid LAD Ischemic cardiomyopathy with EF less than 35% Hypertension Hyperlipidemia Diabetes mellitus type 2 for 20 years Asthma PLAN We will discontinue heparin drip at this time Continue aspirin 81 mg daily, atorvastatin 80 mg daily, Plavix 75 mg daily, Lasix 20 mg daily, lisinopril 10 mg daily, metoprolol titrate 25 mg twice a day Due to severe LV function less than 35% she is at high risk for sudden cardiac and will require Life Vest placement prior to discharge. Case management has been consulted for assistance. Objective - Vital Signs Vital signs: Vital Signs Temp 98.6 F 02/21/21 04:00 Pulse 80 02/20/21 18:35 Resp 16 02/21/21 04:00 BP 109/64 02/21/21 04:00 Pulse Ox 95 02/21/21 04:00 Intake & Output 02/20/21 02/20/21 02/21/21 06:59 18:59 06:59 Intake Total 540 Output Total 1600 Balance -1060 Weight 74.843 kg 92 kg Intake: IV 300 Oral 240 Output: Urine 1600 Other: Voiding Method Toilet # Voids 2 - Labs CBC & Chem 7: 02/21/21 09:06 02/22/21 07:18 Labs: Abnormal Lab Results - Last 24 Hours (Table) 02/20/21 02/20/21 02/20/21 Range/Units 17:59 17:59 20:49 APTT 60.9 H (22.0-30.0) sec POC Glucose (mg/dL) 114 H (75-99) mg/dL Troponin I 0.861 H* (0.000-0.034) ng/mL Urine Glucose (UA) (Negative) Urine Blood (Negative) Ur Leukocyte Esterase (Negative) Hyaline Casts (0-2) /lpf Urine Mucus (None) /hpf 02/21/21 02/21/21 Range/Units 02:31 06:08 APTT (22.0-30.0) sec POC Glucose (mg/dL) 228 H (75-99) mg/dL Troponin I (0.000-0.034) ng/mL Urine Glucose (UA) Trace H (Negative) Urine Blood Moderate H (Negative) Ur Leukocyte Esterase Trace H (Negative) Hyaline Casts 3 H (0-2) /lpf Urine Mucus Rare H (None) /hpf
[2021-02-22 16:49] LABS: Glucose,Whole Blood 156 mg/dL (75-99)
[2021-02-22 17:12] LABS: Chol/HDL Ratio 4.83; LDL Cholesterol,Calculated 140.8 mg/dL (0.0-131.0); VLDL Calculation 39.2 mg/dL (5.00-40.00)
--- NOTE | 2021-02-22 18:12 | P.PN ---
Subjective This is a pleasant 55-year-old with past medical history significant for hypertension, hyperlipidemia, diabetes mellitus type 2, asthma who presents as a transfer from [facility] for anterior STEMI. 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 Over the last day she has been having chest pain. This has been off and on and got worse associated with some diaphoresis and nausea. Initial EKG showed hyperacute T waves, ST elevations V2 through V4 with repeat EKG 40 minutes later with some Q waves with ST elevations. Therefore patient was given IV tenecteplase, aspirin and heparin drip and was transferred to [facility]. On presentation EKG shows sinus rhythm, left axis deviation, Q waves V1 through V3 with continued ST elevation mainly in V2 up to a box and a half and biphasic T waves.She is a non-smoker, denies illicit drug use or alcohol use. Troponin 0.86-->17.3, PT 10.6, INR 1.0, PTT 60.9. She was taking a new weight loss medication over the last 2 days some sort of keto diet pill. Patient is underwent heart catheterization and PCI to the mid LAD with Dr. Solo on 02/19. Cardiac catheterization revealed 90% mid LAD which was stented and 90% OM1 02/22/2021: Patient seen and examined at bedside, no acute distress. She states that she is much better once be discharged home. She denies chest pain, shortness of breath. Echocardiogram revealed an EF of less than 35%, mild to moderate mitral regurgitation, mild tricuspid regurgitation. PHYSICAL EXAMINATION Vital signs reviewed. CONSTITUTIONAL: No apparent distress. HEENT: Neck supple. No JVD. CHEST EXAMINATION: Lungs are clear to auscultation. No chest wall tenderness is noted on palpation or with deep breathing. HEART EXAMINATION: Regular rate and rhythm. S1, S2 heard. Systolic murmur noted ABDOMEN: Soft, nontender. Positive bowel sounds. EXTREMITIES: 2+ peripheral pulses, no lower extremity edema and no calf tenderness. NEUROLOGIC EXAMINATION: Patient is awake, alert and oriented x3. ASSESSMENT Anterior STEMI status post TNK, still some ST elevation in V2 s/p PCI to mid LAD Ischemic cardiomyopathy with EF less than 35% Hypertension Hyperlipidemia Diabetes mellitus type 2 for 20 years Asthma PLAN We will discontinue heparin drip at this time Continue aspirin 81 mg daily, atorvastatin 80 mg daily, Plavix 75 mg daily, Lasix 20 mg daily, lisinopril 10 mg daily, metoprolol titrate 25 mg twice a day Due to severe LV function less than 35% she is at high risk for sudden cardiac and will require Life Vest placement prior to discharge. Case management has been consulted for assistance. Objective - Vital Signs Vital signs: Vital Signs Temp 97.1 F L 02/22/21 08:00 Pulse 69 02/22/21 16:00 Resp 16 02/22/21 16:00 BP 109/62 02/22/21 16:00 Pulse Ox 99 02/22/21 16:00 Intake & Output 02/21/21 02/22/21 02/22/21 18:59 06:59 18:59 Intake Total 960 720 Balance 960 720 Weight 92 kg 73.7 kg Intake: Oral 960 720 Other: Voiding Method Toilet Toilet Toilet # Voids 2 1 1 - Labs CBC & Chem 7: 02/21/21 09:06 02/22/21 07:18 Labs: Abnormal Lab Results - Last 24 Hours (Table) 02/21/21 02/22/21 02/22/21 Range/Units 20:11 07:18 07:18 BUN 24 H (7-17) mg/dL Glucose 114 H (74-99) mg/dL POC Glucose (mg/dL) 230 H (75-99) mg/dL Triglycerides 196.0 H (0.0-149.0) mg/dL Cholesterol 227 H (0-200) mg/dL LDL Cholesterol, Calc 140.8 H (0.0-131.0) mg/dL 02/22/21 02/22/21 Range/Units 11:59 16:47 BUN (7-17) mg/dL Glucose (74-99) mg/dL POC Glucose (mg/dL) 219 H 156 H (75-99) mg/dL Triglycerides (0.0-149.0) mg/dL Cholesterol (0-200) mg/dL LDL Cholesterol, Calc (0.0-131.0) mg/dL
[2021-02-22 20:45] LABS: Glucose,Whole Blood 128 mg/dL (75-99)
[2021-02-23] MEDS: NITROGLYCERIN OINT 1 INCH/GM PACKET TOPICAL SCH ×3 (01:07→12:07)
[2021-02-23] MEDS: PANTOPRAZOLE 40 MG TABLET PO SCH (05:13)
[2021-02-23] MEDS: INSULIN ASPART (NovoLOG) 100 UNIT/ML VIAL SQ SCH ×2 (06:12→12:24)
[2021-02-23] MEDS: glipiZIDE 10 MG TAB PO SCH (06:13)
[2021-02-23 06:32] LABS: Glucose,Whole Blood 120 mg/dL (75-99)
[2021-02-23 07:52] VITALS: RESP 20
[2021-02-23] MEDS: CLOPIDOGREL 75 MG TAB PO SCH (08:53)
[2021-02-23] MEDS: ATORVASTATIN 80 MG TAB PO SCH (08:53)
[2021-02-23] MEDS: ASPIRIN 81 MG PO SCH (08:53)
[2021-02-23] MEDS: METOPROLOL TARTRATE 25 MG TAB PO SCH (08:54)
[2021-02-23] MEDS: FUROSEMIDE 20 MG TAB PO SCH (08:54)
[2021-02-23] MEDS: lisinopriL 10 MG TAB PO SCH (08:54)
[2021-02-23 12:05] LABS: Glucose,Whole Blood 224 mg/dL (75-99)
[2021-02-23 12:08] VITALS: BP 116/73; PULSE 55; TEMP 98
--- NOTE | 2021-02-24 08:52 | PN ---
PROGRESS NOTE Mrs. Hensley is a lady with anterior NM, status post thrombolytic therapy and PCI of LAD by Dr. Solo. Doing well. No chest pain. No heart failure. Feels well. Vitals are stable. No JVD. S1-S2 heard normally. There are no significant murmurs. Lungs are clear. Abdomen and lower extremity exam unchanged. Ejection fraction is between 30 and 35% and I have recommended a Life Vest and she will go home on Life Vest, see Dr. Solo in 1 week or 2. Advised to be compliant with medications and to call for questions. MMODL / IJN: [id number] /
== END 2021-02-23 14:48 | disposition home or self-care (01) | DRG 246 ==
LOC: EC 17:20 → 3SCARD 18:10
PROVIDERS: ADMIT Hospitalist; ATTEND Hospitalist
DX: I21.09 ST elevation (STEMI) myocardial infarction involving other coronary artery of anterior wall (principal); I50.21 Acute systolic (congestive) heart failure; E11.65 Type 2 diabetes mellitus with hyperglycemia; I11.0 Hypertensive heart disease with heart failure; I25.5 Ischemic cardiomyopathy; E78.5 Hyperlipidemia, unspecified; J45.909 Unspecified asthma, uncomplicated; Z79.84 Long term (current) use of oral hypoglycemic drugs; Z79.899 Other long term (current) drug therapy; Z98.891 History of uterine scar from previous surgery; Z87.2 Personal history of diseases of the skin and subcutaneous tissue; Z86.31 Personal history of diabetic foot ulcer; Z82.49 Family history of ischemic heart disease and other diseases of the circulatory system; Z80.9 Family history of malignant neoplasm, unspecified
CPT/HCPCS: 36415; 71045; 80048; 80061; 81001; 84484; 85025; 85610; 85730; 93005; 93306; 93454; 99291

== ENCOUNTER 2021-03-08 07:19 | Day surgery (SDC) | payer BC ==
[2021-03-02 14:29] VITALS: BMI 27.3
[~2021-03-08 07:19] MED LIST: ALPRAZolam 0.25 MG TAB PO PRN; ALPRAZolam 0.5 MG TAB PO PRN; ASPIRIN 325 MG TAB PO ONE; ATORVASTATIN 80 MG TAB PO ONE; NITROGLYCERIN SL TABS 0.4 MG TAB SUBLINGUAL PRN; SODIUM CHLORIDE 0.9% 1,000 ML in EMPTY BAG 1 BAG IV ONE
[2021-03-08 07:56] VITALS: RESP 18; TEMP 97.5
[2021-03-08 07:57] LABS: Glucose,Whole Blood 106 mg/dL (75-99)
[2021-03-08 08:01] LABS: Basophils # (A) 0.1 k/uL (0-0.2); Basophils % (A) 0 %; Eosinophils # (A) 0.4 k/uL (0-0.7); Eosinophils % (A) 4 %; HCT 41.1 % (34.0-46.0); Lymphocytes # (A) 2.3 k/uL (1.0-4.8); Lymphocytes % (A) 20 %; MCH 28.4 pg (25.0-35.0); MCHC 34.1 g/dL (31.0-37.0); MCV 83.4 fL (80.0-100.0); Mean Platelet Volume 6.9; Monocytes # (A) 0.5 k/uL (0-1.0); Monocytes % (A) 4 %; Neutrophils # (A) 8.2 k/uL (1.3-7.7); Neutrophils % (A) 71 %; Platelet Count 294 k/uL (150-450); RBC 4.93 m/uL (3.80-5.40); RDW 13.7 % (11.5-15.5); WBC 11.6 k/uL (3.8-10.6)
[2021-03-08 08:13] LABS: African American GFR (CKD) >90 (>60 ml/min/1.73 sqM); Anion Gap 7 mmol/L; Blood Urea Nitrogen 28 mg/dL (7-17); Calcium 10.2 mg/dL (8.4-10.2); Carbon Dioxide 32 mmol/L (22-30); Chloride 101 mmol/L (98-107); Glucose 111 mg/dL (74-99); Non-African American GFR(CKD) 83 (>60 ml/min/1.73 sqM); Potassium 4.5 mmol/L (3.5-5.1); Sodium 140 mmol/L (137-145)
[2021-03-08] MEDS ORDERED: MIDAZOLAM 2 MG/2 ML VIAL IVP ONE (09:10)
[2021-03-08] MEDS ORDERED: fentaNYL (PF) 50 MCG/ML 2 ML AMP IVP ONE (09:10)
[2021-03-08] MEDS ORDERED: LIDOCAINE 1% INJ 10MG/ML (20 ML MDV) SQ ONE ×2 (09:12→09:25)
[2021-03-08] MEDS: HEPARIN SODIUM 1,000 UN/ML (10ML VL) IVP ONE ×2 (09:17→10:24)
[2021-03-08] MEDS: NITROGLYCERIN 1000MCG/10ML SYRINGE INTRACORON ONE ×5 (09:49→10:23)
[2021-03-08] MEDS ORDERED: IOPAMIDOL-370 125ML BTL INJ ONE (10:25)
[2021-03-08] MEDS ORDERED: IOPAMIDOL-370 100ML BTL INJ ONE (10:32)
[2021-03-08] MEDS ORDERED: ALBUTEROL HFA INHALER INHALATION PRN (11:24)
[2021-03-08] MEDS ORDERED: MAG HYDROX/AL HYDROX/SIMETH 30 ML CUP PO PRN (11:26)
[2021-03-08] MEDS ORDERED: ZOLPIDEM 5 MG TAB PO PRN (11:26)
[2021-03-08] MEDS ORDERED: ATROPINE SULFATE 0.1 MG/ML 10ML SYRINGE IV PRN (11:26)
[2021-03-08] MEDS ORDERED: RX INFO: IV CONTRAST WAS GIVEN 1 EACH MISC MISCELLANE PRN (11:26)
[2021-03-08] MEDS ORDERED: SODIUM CHLORIDE 0.9% 1,000 ML IV SCH (11:30)
[2021-03-08 15:37] VITALS: BP 107/59; PULSE 57
[2021-03-08] MEDS ORDERED: glipiZIDE 10 MG TAB PO SCH (17:30)
[2021-03-08] MEDS ORDERED: METOPROLOL TARTRATE 25 MG TAB PO SCH (21:00)
--- NOTE | 2021-03-08 21:31 | P.PRCINT ---
Percutaneous Coronary Int. - Percutaneous Coronary Intervention Percutaneous Coronary Intervention: Procedures performed: Left coronary angiography, PCI of proximal OM1 with a 2.5 x 8mm Xience KIT, iFR mid OM, PCI mid OM with a 2.25 x 12mm Xience KIT, Angioseal closure Procedure performed by: Dr Marvel Solo DO Indications: Staged PCI HPI: She is a pleasant 55-year-old female with a history of STEMI with PCI of LAD January 2021 with resultant ischemic cardiomyopathy with ejection fraction 30- 35%, asthma, hyperlipidemia, hypertension, type 2 diabetes mellitus who presents for staged PCI of her OM1. Patient had heart catheterization and PCI of LAD 02/20/2021 and was found to have residual OM1 90% proximal disease and a mid OM1 60-70% stenosis. Therefore staged intervention was recommended. There was mild disease only of the RCA. Patient has a known right radial loop with inability to pass a 5Fr catheter up the loop previously. Conscious sedation: Conscious sedation was performed under the direct supervion of myself using Versed and Fentanyl for a total of 78 mins. Description of procedure: The risks, benefits and alternatives of heart catheterization and PCI were explained in detail to the patient before the procedure and informed consent was obtained. Patient has a known loop of the right radial artery with inability to pass a 5- [place] catheter previously and therefore femoral access was used. Using ultrasound guidance 1% lidocaine was used to anesthetize the right femoral area and a micropuncture catheter was inserted without incidence. There was a defect in the microcatheter with the 0.035 J-wire piercing the proximal portion of the microcatheter and unable to advance the wire. Therefore the micropuncture catheter was removed and manual pressure was held and hemostasis achieved. Therefore left femoral axis was obtained using micropuncture technique and ultrasound guidance. A 6-[place] sheath was placed. A decision was made to intervene on the OM1. Heparin was given for an ACT greater than 250. A 6Fr CLS 4.0 guide was used to engage the left main. A 0.014 BMW wire was placed in the distal vessel. Next predilation was performed using a 2.0 x 8mm balloon. A 2.5 x 8mm Xience KIT stent was then placed at the proximal OM1 lesion. Angiograms were obtained in multiple views. Pre intervention there was 90% stenosis and NANCI 3 flow and post intervention there was 0% residual stenosis and NANCI 3 flow and no evidence of any dissection. The wire was then removed and final angiograms were obtained. There was still residual mid to OM 1 stenosis which on repeat images appeared more significant. Therefore the decision was made to iFR the lesion. An iFR pressure wire was advanced into the left main and normalized and then advanced into the distal OM1, approximately 1-2 cm distal to the lesion. iFR was performed and was abnormal at 0.42. Therefore the decision was made to treat the mid OM1 lesion as well. A 2.25 x 12 mm Xience KIT was then deployed at the mid OM1 lesion. The wire was then removed and final angiograms were performed. Preintervention there was a 60-70% OM1 stenosis and NANCI-3 flow and postintervention there was less than 10% stenosis and NANCI-3 flow. Left femoral angiogram showed adequate anatomy for closure and a 6Fr Angioseal was placed with hemostasis achieved. The patient tolerated the procedure well. The patient was transferred to the post catheterization holding area in stable condition. Conclusions: 1. Successful staged PCI of proximal OM1 with a 2.5 x 8mm Xience KIT, and PCI mid OM with a 2.25 x 12mm Xience KIT 2. Known right radial loop Plan: 1. Aggressive risk factor modifications per most recent ACC/AHA guidelines. 2. Continue dual antiplatelets for 12 months.
[2021-03-09] MEDS ORDERED: FUROSEMIDE 20 MG TAB PO SCH (09:00)
[2021-03-09] MEDS ORDERED: ATORVASTATIN 80 MG TAB PO SCH (09:00)
[2021-03-09] MEDS ORDERED: CLOPIDOGREL 75 MG TAB PO SCH (09:00)
[2021-03-09] MEDS ORDERED: ASPIRIN 81 MG PO SCH (09:00)
[2021-03-09] MEDS ORDERED: lisinopriL 10 MG TAB PO SCH (09:00)
[2021-03-09] MEDS ORDERED: NON FORMULARY DRUG (Semaglutide [Ozempic] 0.25 MG/0.2 ML Pen.Injctr) SQ SCH (11:24)
== END 2021-03-08 16:08 | disposition home or self-care (01) ==
LOC: CATHCVL 07:19
PROVIDERS: ATTEND Internal Medicine
DX: I25.10 Atherosclerotic heart disease of native coronary artery without angina pectoris (principal); E78.5 Hyperlipidemia, unspecified; E11.9 Type 2 diabetes mellitus without complications; I11.0 Hypertensive heart disease with heart failure; I50.22 Chronic systolic (congestive) heart failure; Z79.84 Long term (current) use of oral hypoglycemic drugs; Z82.49 Family history of ischemic heart disease and other diseases of the circulatory system; Z79.02 Long term (current) use of antithrombotics/antiplatelets; Z79.82 Long term (current) use of aspirin; Z79.899 Other long term (current) drug therapy
CPT/HCPCS: 93571; 80048; 85025; C9600; C1769 ×5; C1760; C1887; C1725; C1894; C1874; J2250; J2001; J3010; J1644; Q9967 ×2

== ENCOUNTER → 2023-02-14 | Outpatient (CLI) | payer BC ==
--- NOTE | 2023-02-14 17:08 | US ---
EXAMINATION TYPE: US thyroid st tissue head/neck DATE OF EXAM: 02/14/2023 COMPARISON: NONE CLINICAL INDICATION: Female, 57 years old with history of E04.1 Thyroid nodule; Nodule GLAND SIZE: Right Lobe: 4.1 x 1.3 x 1.4 cm Overall Parenchyma: heterogenous Left Lobe: 4.8 x 2.4 x 2.0 cm Overall Parenchyma: heterogenous Isthmus Thickness: 0.3 cm NODULES RIGHT: # of nodules measured on right: 2 1. 0.5 X 0.5 x 0.3 cm, mid mid, solid or almost completely solid, hyperechoic nodule, which is wide r than tall, with smooth margins, calcified nodule. TR 4. Prior size: No prior 2. 2.1 X 1.4 x 1.2 cm, lower mid, solid or almost completely solid, isoechoic nodule, which is wide r than tall, with smooth margins, without echogenic foci. TR 3. Prior size: No prior LEFT: # of nodules measured on left: 3 1. 3.1 X 2.3 x 1.9 cm, mid mid, mixed cystic and solid, hypoechoic nodule, which is wider than tall , with smooth margins, without echogenic foci. TR 3. Prior size: No prior 2. 1.7 X 1.5 x 1.3 cm, lower medial, solid or almost completely solid, hypoechoic nodule, which is wider than tall, with smooth margins, without echogenic foci. TR 4. Prior size: No prior 3. 1.0 X 0.7 x 0.7 cm, lower mid, solid or almost completely solid, hyperechoic nodule, which is as wide as it is tall, with smooth margins, without echogenic foci. TR 3. Prior size: No prior ISTHMUS: # of nodules measured in the isthmus: 0 Bilateral neck scanned, no evidence of lymphadenopathy. IMPRESSION: Multiple bilateral thyroid nodules. The most suspicious is TR 3 left 3.1 cm nodule in the midportion. And a TR 4 left 1.7 cm nodule in the lower portion medially. Consider fine-needle aspiration of both these nodules. Follow-up ultrasound in one year is recommended.
== END | disposition home or self-care (01) ==
LOC: RADUSWWP 15:48
PROVIDERS: ATTEND Family Medicine
DX: E04.2 Nontoxic multinodular goiter (principal)
CPT/HCPCS: 76536

== ENCOUNTER 2023-04-16 11:43 | Day surgery (SDC) | payer BC ==
[2023-04-16 12:46] VITALS: PULSE 56; RESP 18; TEMP 98.5
--- NOTE | 2023-04-16 14:52 | US ---
ULTRASOUND GUIDED FNA THYROID BIOPSY: CLINICAL HISTORY: Request for 1.7 and 3.1 cm left thyroid nodule FNA. FINDINGS: The procedure was explained to the patient. The risks, complications, benefits and alternatives were discussed and any questions were answered. Informed consent was obtained. Patient was placed supin e on the ultrasound table and prepped and draped in the usual sterile fashion. Utilizing a 25 gauge needle, five passes were made into the each of the requested left-sided thyroid nodules. Patient was stable throughout the procedure. Pathology is pending. All elements of maximal barrier technique were utilized. IMPRESSION: 1. Successful ultrasound guided FNA thyroid biopsy.
[2023-04-16 15:52] VITALS: BP 149/76
== END 2023-04-16 14:31 | disposition home or self-care (01) ==
LOC: RADPROMAIN 11:43
PROVIDERS: ATTEND Family Medicine
DX: E04.1 Nontoxic single thyroid nodule (principal); Z80.8 Family history of malignant neoplasm of other organs or systems
CPT/HCPCS: 10005; 88173; 88305

== ENCOUNTER → 2023-09-10 | Outpatient (CLI) | payer BC ==
--- NOTE | 2023-09-14 15:41 | MM ---
Reason for Exam: Screening (asymptomatic). Last mammogram was performed 3 year(s) and 1 month(s) ago. Patient History: Menarche at age 10. First Full-Term at age 30. Late child-bearing (after 30). Postmenopausal. Risk Values: Priya 5 year model risk: 2.0%. NCI Lifetime model risk: 11.4%. Prior Study Comparison: 06/21/2016 Bilateral Screening Mammogram, [facility]. 04/21/2018 Bilateral Screening Mammogram, [facility]. 08/17/2020 Bilateral Screening Mammogram, [facility]. Tissue Density: There are scattered fibroglandular densities. Findings: Analyzed By CAD. The pattern is symmetrical and stable. No significant interval changes. No suspicious groups of microcalcifications, spiculated or lobular masses, architectural distortion or other secondary signs of malignancy are mammographically apparent. Overall Assessment: Benign, BI-RAD 2 Management: Screening Mammogram of both breasts in 1 year. A negative mammogram report should not preclude additional follow up of suspicious palpable abnormalities. Patient should continue monthly self breast exam. A clinical breast exam by your physician is recommended on an annual basis and results should be correlated with mammographic findings. Electronically signed and approved by: Juan Leroy D.O. Radiologis
== END | disposition home or self-care (01) ==
LOC: RADMAMWWP 14:55
PROVIDERS: ATTEND Family Medicine
DX: Z12.31 Encounter for screening mammogram for malignant neoplasm of breast (principal); Z78.0 Asymptomatic menopausal state
CPT/HCPCS: 77063; 77067